=== PATIENT | male | born 1990 | race Caucasian/White ===

== ENCOUNTER → 2019-05-19 13:25 | Outpatient (CLI) | payer OTHER, SELFPAY ==
[2019-05-19 13:42] LABS: Add Manual Diff / Slide Review NO; Basophils Absolute Auto 100 /uL (0-100); Basophils Percent Auto 1.1 % (0-2); Eosinophils Absolute Auto 0 /uL (0-450); Eosinophils Percent Auto 0.7 % (2-4); Hematocrit 42.4 % (41-53); Hemoglobin 14.5 g/dL (13.5-17.5); Lymphocytes Absolute Auto 1400 /uL (1100-4500); Lymphocytes Percent Auto 27.5 % (25-40); Mean Corpuscular HGB Conc 34.1 % (30-36); Mean Corpuscular Hemoglobin 31.4 PG (26-34); Monocytes Absolute Auto 400 /uL (0-900); Monocytes Percent Auto 8.6 % (3-14); Neutrophils Absolute Auto 3100 /uL (1500-7000); Neutrophils Percent Auto 62.1 % (50-75); Platelet Count 272 X10^3/uL (150-400); Red Blood Cell Count 4.61 X10^6/uL (4.5-5.9); Red Cell Distribution Width 13.8 % (11.6-14.8)
[2019-05-19 14:31] LABS: Alanine Aminotransferase 31 IU/L (21-72); Albumin 4.5 g/dL (3.5-5.0); Albumin Globulin Ratio 1.5 (1.0-2.8); Alkaline Phosphatase 100 U/L (38-126); Aspartate Aminotransferase 30 IU/L (17-59); BUN Creatinine Ratio 11.1 (6-22); Bilirubin Total 0.6 mg/dL (0.2-1.3); Blood Urea Nitrogen 10 mg/dL (9-20); Calcium 9.7 mg/dL (8.4-10.2); Carbon Dioxide 27 mmol/L (22-32); Chloride 104 mmol/L (98-107); Estimated Glomerular Filt Rate > 60.0 mL/min (>60); Glucose 93 mg/dL (70-100); HEMOLYSIS < 15 (0-50); Potassium 4.1 mmol/L (3.4-5.1); Sodium 141 mmol/L (137-145); Total Protein 7.5 g/dL (6.3-8.2)
[2019-05-19 15:02] LABS: TSH w/ Reflex to FT4 1.24 uIU/mL (0.47-4.68)
== END ==
PROVIDERS: PCP Family Medicine; Visit Provider Physician Assistant
DX: R53.83 Other fatigue (principal)
CPT/HCPCS: 36415; 80053; 84443; 85025

== ENCOUNTER 2019-08-01 18:05 | Emergency (ER) | payer OTHER, SELFPAY ==
[2019-08-01 18:17] VITALS: BP 131/81; PULSE 71; RESP 16; TEMP 36.7; O2SAT 100; BMI 24.1
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
[2019-08-01 19:44] VITALS: BP 118/70; PULSE 69; RESP 16; O2SAT 99
== END 2019-08-01 19:44 | disposition home or self-care (01) ==
PROVIDERS: Emergency Provider Nurse Practitioner Family; PCP Family Medicine
DX: S09.90XA Unspecified injury of head, initial encounter (principal); M25.562 Pain in left knee; V28.4XXA Motorcycle driver injured in noncollision transport accident in traffic accident, initial encounter
CPT/HCPCS: 70450; 99282; 99284

== ENCOUNTER → 2019-10-06 16:42 | Outpatient (CLI) | payer OTHER, SELFPAY ==
[2019-10-06 19:24] LABS: HIV 1 & 2 Ab/Ag 4th Gen Combo NEGATIVE (NEGATIVE)
== END ==
PROVIDERS: PCP Family Medicine; Visit Provider Physician Assistant
DX: Z11.3 Encounter for screening for infections with a predominantly sexual mode of transmission (principal)
CPT/HCPCS: 36415; 87389

== ENCOUNTER 2019-12-09 01:41 | Emergency (ER) | payer OTHER, SELFPAY ==
[2019-12-09 02:25] VITALS: BP 114/73; PULSE 70; RESP 18; TEMP 36.4; O2SAT 95
--- NOTE | 2019-12-09 02:26 | DI.RAD.S_ITS ---
PROCEDURE: XR CHEST 2V INDICATIONS: SHORTNESS OF BREATH, cough TECHNIQUE: 2 views of the chest were acquired. COMPARISON: None. FINDINGS: Surgical changes and devices: None. Lungs and pleura: Lungs are clear. No pleural effusions or pneumothorax. Mediastinum: Mediastinal contours are normal. Heart size is normal. Bones and chest wall: No suspicious bony abnormalities. Soft tissues appear unremarkable. IMPRESSION: No acute cardiopulmonary findings. Dictated by: Karlee Albert M.D. on 12/09/2019 at 7:52 Approved by: Karlee Albert M.D. on 12/09/2019 at 7:52
[2019-12-09 03:01] VITALS: BP 114/73; PULSE 73; RESP 16; TEMP 36.8; O2SAT 100
[2019-12-09 03:37] LABS: Add Manual Diff / Slide Review NO; Basophils Absolute Auto 100 /uL (0-100); Basophils Percent Auto 1.1 % (0-2); Eosinophils Absolute Auto 100 /uL (0-450); Hemoglobin 15.1 g/dL (13.5-17.5); Lymphocytes Absolute Auto 2400 /uL (1100-4500); Lymphocytes Percent Auto 36.8 % (25-40); Mean Corpuscular HGB Conc 35.1 % (30-36); Mean Corpuscular Hemoglobin 31.8 PG (26-34); Mean Corpuscular Volume 90.7 fL (80-100); Monocytes Absolute Auto 600 /uL (0-900); Monocytes Percent Auto 9.5 % (3-14); Neutrophils Absolute Auto 3400 /uL (1500-7000); Neutrophils Percent Auto 51.6 % (50-75); Platelet Count 286 X10^3/uL (150-400); Red Blood Cell Count 4.74 X10^6/uL (4.5-5.9); Red Cell Distribution Width 13.3 % (11.6-14.8); White Blood Cell Count 6.5 X10^3/uL (4.5-11.0)
[2019-12-09 03:48] LABS: BUN Creatinine Ratio 13.8 (6-22); Blood Urea Nitrogen 11 mg/dL (9-20); Calcium 9.4 mg/dL (8.4-10.2); Carbon Dioxide 26 mmol/L (22-32); Chloride 105 mmol/L (98-107); Creatine Kinase 119 U/L (55-170); Estimated Glomerular Filt Rate > 60.0 mL/min (>60); Glucose 89 mg/dL (70-100); HEMOLYSIS < 15 (0-50); Potassium 3.7 mmol/L (3.4-5.1); Sodium 138 mmol/L (137-145)
[2019-12-09 04:00] LABS: Troponin I < 0.012 ng/mL (0.01-0.034)
[2019-12-09 04:03] LABS: Creatine Kinase MB 1.23 ng/mL (<2.37)
[2019-12-09 04:37] VITALS: BP 112/66; PULSE 88; RESP 24; O2SAT 97
--- NOTE | 2019-12-09 07:42 | ED_ITS ---
HPI - SOB/Dyspnea General Chief Complaint: Shortness of Breath/Dyspnea Stated Complaint: feels like cant get deep enough breath Time Seen by Provider: 12/09/19 01:47 Source: patient Mode of arrival: Ambulatory Limitations: no limitations History of Present Illness HPI Narrative: 21-year-old male smoker without significant medical history presents with a chief complaint shortness of breath, cough, sometimes productive and generally feeling unwell for upwards of a week. He denies fever but has had some chills. He denies any significant runny nose, sore throat. He has had no nausea, vomiting or diarrhea. He denies any international travel or exposure to persons under suspicion for COVID-19. MD Complaint: shortness of breath, cough and pain with inspiration Onset (ago): day(s) Context: recent illness Severity: mild Consistency/Duration: now resolved Relieving factors: rest Exacerbating factors: coughing and inspiration Related Data Previous Rx's Medication Instructions Recorded benzonatate 100 mg capsule 100 mg PO BID PRN #30 cap 11/29/19 doxycycline hyclate 100 mg PO BID #20 tab 12/09/19 Allergies Allergy/AdvReac Type Severity Reaction Status Date / Time No Known Drug Allergies Allergy Verified 11/29/19 15:33 Review of Systems Constitutional Constitutional: Reports chills, Denies fatigue, Denies frequent falls, Denies lethargy and Denies weakness Eyes Eyes: Denies change in vision, Denies eye discharge, Denies irritation and Denies loss of vision ENT Ears, Nose, Mouth, and Throat: Denies change in voice, Denies dizziness, Denies neck pain, Denies sore throat and Denies throat swelling Cardiovascular Cardiovascular: Denies chest pain, Denies irregular heart rhythm, Denies lighth eadedness, Denies palpitations, Reports dyspnea, Denies dyspnea on exertion and Denies orthopnea Respiratory Respiratory: Reports cough, Reports dyspnea, Denies dyspnea on exertion and Denies wheezing Gastrointestinal Gastrointestinal: Denies abdominal pain, Denies change in bowel habits, Denies diarrhea, Denies nausea and Denies vomiting Genitourinary Genitourinary: Denies hematuria, Denies flank pain, Denies urinary incontinence and Denies urinary urgency Musculoskeletal Musculoskeletal: Denies back pain, Denies muscle weakness, Denies neck pain, Denies numbness and Denies tingling Integumentary/Breasts Skin/Breast: Denies pruritus, Denies erythema, Denies rash and Denies wounds Neurologic Neurologic: Denies behavioral changes, Denies confusion, Denies dizziness, Denies frequent falls, Denies loss of vision, Denies numbness, Denies tingling and Denies weakness Psychiatric Psychiatric: Denies anxiety, Denies behavioral changes, Denies confusion, Denies depression, Denies homicidal ideation and Denies suicidal ideation Endocrine Endocrine: Denies fatigue, Denies flushing and Denies palpitations Hematologic/Lymphatic Hematologic/Lymphatic: Denies easy bruising Allergic/Immunologic Allergic/Immunologic: Denies urticaria, Denies throat swelling and Denies wheezing Patient History Medical History Nasal congestion (Acute) Sinusitis (Acute) Social History Smoking Status: Current some day smoker Tobacco: How many years used: 10 Smokeless tobacco user: chewing tobacco (trying to quit ) quit status: considering quitting second hand exposure: Yes alcohol intake: former substance use type: former substance user and marijuana (Former ) Smoking Status: Current some day smoker tobacco type: smokeless tobacco Substance Use Type: does not use Exam Narrative Exam Narrative: GENERAL: [29] year old patient appears stated age. Well- nourished, well-developed patient, in mild distress. HEAD: Atraumatic. Normocephalic. EYES: Pupils equal round and reactive. Extraocular motions intact. No scleral icterus. No injection or drainage. ENT: Nose without bleeding, purulent drainage. Throat without erythema, tonsillar hypertrophy or exudate. Airway patent. NECK: Trachea midline. Non tender CARDIOVASCULAR: Regular rate and rhythm without murmurs, gallops, or rubs. RESPIRATORY: Clear to auscultation. Breath sounds equal bilaterally. No wheezes, rales, or rhonchi. GASTROINTESTINAL: Abdomen soft, non-tender, nondistended. EXTREMITIES: No edema or joint tenderness. BACK: Nontender without deformity or crepitance. No flank tenderness. NEURO: AOx3. SKIN: No rash or erythema of visible areas Initial Vital Signs Initial Vital Signs: Vital Signs Temperature 97.6 F 12/09/19 02:25 Pulse Rate 70 12/09/19 02:25 Respiratory Rate 18 12/09/19 02:25 Blood Pressure 114/73 12/09/19 02:25 Pulse Oximetry 95 12/09/19 02:25 Course Orders Ordered: ED Orders 12/09/19 02:26 Chest [XR chest 2V] Stat 12/09/19 03:22 EKG-12 Lead Stat 12/09/19 03:24 Basic Metabolic Panel Stat Complete Blood Count AUTO DIFF Stat Troponin & CK Cardiac Panel Stat Vital Signs Vital signs: Vital Signs - 8 hr 12/09/19 02:25 12/09/19 03:01 12/09/19 04:37 Temperature 97.6 F 98.2 F Pulse Rate 70 73 88 Respiratory Rate 18 16 24 Blood Pressure 114/73 112/66 Blood Pressure [Left Arm] 114/73 Pulse Oximetry 95 100 97 MDM - SOB/Dyspnea Lab Data Result diagrams: 12/09/19 03:24 12/09/19 03:24 Labs: Lab Results 12/09/19 12/09/19 Range/Units 03:24 03:24 WBC 6.5 (4.5-11.0) X10^3/uL RBC 4.74 (4.5-5.9) X10^6/uL Hgb 15.1 (13.5-17.5) g/dL Hct 43.0 (41-53) % MCV 90.7 (80-100) fL MCH 31.8 (26-34) PG MCHC 35.1 (30-36) % RDW 13.3 (11.6-14.8) % Plt Count 286 (150-400) X10^3/uL Neut % (Auto) 51.6 (50-75) % Lymph % (Auto) 36.8 (25-40) % Atlantic % (Auto) 9.5 (3-14) % Eos % (Auto) 1.0 L (2-4) % Baso % (Auto) 1.1 (0-2) % Neut # (Auto) 3400 (3013-6825) /uL Lymph # (Auto) 2400 (0723-1398) /uL [place] # (Auto) 600 (0-900) /uL Eos # (Auto) 100 (0-450) /uL Baso # (Auto) 100 (0-100) /uL Sodium 138 (137-145) mmol/L Potassium 3.7 (3.4-5.1) mmol/L Chloride 105 (98-107) mmol/L Carbon Dioxide 26 (22-32) mmol/L BUN 11 (9-20) mg/dL Creatinine 0.80 (0.66-1.25) mg/dL Estimated GFR > 60.0 (>60) mL/min BUN/Creatinine Ratio 13.8 (6-22) Glucose 89 (70-100) mg/dL Calcium 9.4 (8.4-10.2) mg/dL Total Creatine Kinase 119 (55-170) U/L CK-MB (CK-2) 1.23 (<2.37) ng/mL CK-MB (CK-2) Rel Index 1.0 L (1.5-5.0) % Troponin I < 0.012 (0.01-0.034) ng/mL Imaging Data Chest x-ray: Radiologist's Impression: Patient: Yakov Banks [facility] [place]#: [id number] : 1990Acct:[id number] Age/Sex: 29 / MDate of Service: 12/09/19 Loc: ED Accession Number: [id number] Procedure: XR chest 2V Ordering Provider: Ar Perez D.O. PROCEDURE: XR CHEST 2V INDICATIONS: SHORTNESS OF BREATH, cough TECHNIQUE: 2 views of the chest were acquired. COMPARISON: None. FINDINGS: Surgical changes and devices: None. Lungs and pleura: Lungs are clear. No pleural effusions or pneumothorax. Mediastinum: Mediastinal contours are normal. Heart size is normal. Bones and chest wall: No suspicious bony abnormalities. Soft tissues appear unremarkable. IMPRESSION: No acute cardiopulmonary findings. Dictated by: Karlee Albert M.D. on 12/09/2019 at 7:52 Approved by: Karlee Albert M.D. on 12/09/2019 at 7:52 [facility] Narrative Medical decision making narrative: Multiple etiologies for patient's symptoms considered including: [Cardiac ischemia versus pulmonary embolism versus pneumonia versus pleuritis versus other] Patient's symptoms improved or duration of stay with above-stated therapies. Findings and discharge diagnosis discussed with patient/family followed by verbalization of understanding Return precautions discussed with patient/family whom verbalize understanding. Discharge Plan Departure Patient Disposition: Home Clinical Impression: Acute dyspnea, Atypical pneumonia Discharge Date/Time: 03/07/20 04:39 Instructions: DI for Atypical Pneumonia Activity Restrictions/Additional Instructions: *You have been diagnosed with [ atypical pneumonia ] *What to do: *Take medications as directed *Follow up with your primary care provider in 2-3 days, call for an appointment. Let them know you were seen in the Emergency Department and that we ask that you be seen in follow up *Return to ER if you should have any new, worsening or concerning symptoms Prescriptions: New doxycycline hyclate 100 mg tablet 100 mg PO BID Qty: 20 RF: 0 No Action benzonatate [Tessalon Perles] 100 mg capsule 100 mg PO BID PRN (Reason: cough) Qty: 30 RF: 1 Referrals: Al Johns, [Primary Care Provider] -
== END 2019-12-09 04:39 | disposition home or self-care (01) ==
PROVIDERS: Emergency Provider Emergency Medicine; PCP Family Medicine
DX: R06.00 Dyspnea, unspecified (principal); J18.9 Pneumonia, unspecified organism; R07.9 Chest pain, unspecified
CPT/HCPCS: 36415; 71046; 80048; 82550; 82553; 84484; 85025; 93005; 93010; 99283; 99284

== ENCOUNTER → 2020-01-11 12:00 | Outpatient (CLI) | payer OTHER, SELFPAY ==
[2020-01-11 13:19] LABS: Influenza A - CEPHEID Flu A NEGATIVE (NEGATIVE); Influenza B - CEPHEID Flu B NEGATIVE (NEGATIVE)
[2020-01-13 02:06] LABS: COVID19 Sendout Not Detected (Not Detected)
== END ==
PROVIDERS: PCP Family Medicine; Visit Provider Registered Nurse
DX: Z20.828 Contact with and (suspected) exposure to other viral communicable diseases (principal); R05 Cough; R06.02 Shortness of breath; R68.89 Other general symptoms and signs; Z87.01 Personal history of pneumonia (recurrent)
CPT/HCPCS: 87502; 87635

== ENCOUNTER → 2020-05-08 15:56 | Outpatient (CLI) | payer BC, SELFPAY ==
[2020-05-08 16:37] LABS: Add Manual Diff / Slide Review NO; Basophils Absolute Auto 0 /uL (0-100); Basophils Percent Auto 0.5 % (0-2); Eosinophils Absolute Auto 100 /uL (0-450); Eosinophils Percent Auto 1.1 % (2-4); Hematocrit 41.2 % (41-53); Hemoglobin 14.2 g/dL (13.5-17.5); Lymphocytes Absolute Auto 1800 /uL (1100-4500); Lymphocytes Percent Auto 34.4 % (25-40); Mean Corpuscular HGB Conc 34.5 % (30-36); Mean Corpuscular Hemoglobin 31.4 PG (26-34); Monocytes Absolute Auto 500 /uL (0-900); Neutrophils Absolute Auto 2800 /uL (1500-7000); Platelet Count 271 X10^3/uL (150-400); Red Blood Cell Count 4.52 X10^6/uL (4.5-5.9); Red Cell Distribution Width 12.6 % (11.6-14.8); White Blood Cell Count 5.2 X10^3/uL (4.5-11.0)
[2020-05-08 16:47] LABS: Hemoglobin A1C% w Est Avg Glu 5.2 % (4.0-6.0)
== END ==
PROVIDERS: PCP Family Medicine; Referring Provider Family Medicine; Visit Provider Family Medicine
DX: G47.9 Sleep disorder, unspecified (principal)
CPT/HCPCS: 36415; 83036; 84443; 85025

== ENCOUNTER → 2022-09-25 15:17 | Outpatient (CLI) | payer BC, SELFPAY ==
--- NOTE | 2022-09-25 15:19 | DI.RAD.S_ITS ---
PROCEDURE: XR KNEE LT 3V INDICATIONS: Left Knee pain TECHNIQUE: 3 views of the knee were acquired. COMPARISON: None. FINDINGS: Bones: No fractures or dislocations. No suspicious bony lesions. Soft tissues: No joint effusion. No suspicious soft tissue calcifications. IMPRESSION: No evidence acute bony abnormality of the left knee. If clinical suspicion and/or symptoms persist, further assessment with repeat plain films, or advanced imaging (e.g., CT, MRI, or bone scan) may be helpful for further assessment. Dictated by: Jose Morris M.D. on 09/25/2022 at 16:16 Approved by: Jose Morris M.D. on 09/25/2022 at 16:16
== END ==
PROVIDERS: PCP Family Medicine; Referring Provider Family Medicine; Visit Provider Family Medicine
DX: M25.562 Pain in left knee (principal)
CPT/HCPCS: 73562

== ENCOUNTER 2023-02-27 14:36 | Emergency (ER) | payer BC, SELFPAY ==
[2023-02-27 14:39] VITALS: BP 139/81; PULSE 85; RESP 18; TEMP 36.6; O2SAT 97; BMI 24.1
[2023-02-27 15:55] VITALS: PULSE 74; RESP 18; O2SAT 99
--- NOTE | 2023-02-28 07:53 | ED_ITS ---
HPI - Psych General Chief Complaint: Psychiatric Symptoms Stated Complaint: mental troubles/troubled Time Seen by Provider: 02/27/23 15:06 Source: patient Mode of arrival: Ambulatory History of Present Illness HPI Narrative: 32-year-old male former smoker with history of depression presents for evaluation of depression. He does not have suicidal or homicidal ideations and states that he is able to care for himself and perform activities of daily living. He has been having increasing difficulties at home and is in a marriage that is ?on the rocks?. There was some conversation with his and he uttered something similar to ?I would not care if I was no longer here?. He very firmly states that he has no suicidal ideation or plan and would never take steps to hurt himself but is here because his recommended he come for e valuation. He states some of his triggers are the feeling of lack of respect and understanding at home and a marriage that is dissolving. He states that his is preventing him from being involved with his step children which is quite painful. They do have 1 child together whom he has a good relationship with. He states another significant trigger is adult with emotions relating to the untimely of his closest friend many years ago. He does have a therapist that he sees relatively routinely but does not take any medications. He does not wish to pursue hospitalization Related Data Allergies Allergy/AdvReac Type Severity Reaction Status Date / Time No Known Drug Allergies Allergy Verified 09/25/22 14:24 Review of Systems Review of Systems Narrative: GENERAL: Denies chills, fatigue, malaise, fever, sweats. HEENT: Denies sinus pain, ear pain, sore throat, difficulty swallowing, dizziness. RESPIRATORY: Denies dyspnea, cough, wheezing, hemoptysis, sputum. CARDIOVASCULAR: Denies chest pain, palpitations, orthopnea, edema, GASTROINTESTINAL: Denies nausea, vomiting, abdominal pain, diarrhea, constipation, melena. : Denies dysuria, frequency, incontinence, hematuria, urinary retention. MUSCULOSKELETAL: denies weakness, joint pain, or bony pain SKIN: Denies rash, skin lesions, or other NEUROLOGIC: Denies weakness, headache, numbness, change in speech, confusion, seizures, incoordination. PSYCHIATRIC: See HPI 12 point review of systems is negative except for those stated above Patient History Medical History Disordered sleep Family history of colon cancer Left knee pain Nasal congestion Sinusitis Situational anxiety Well adult exam Social History Smoking Status: Former smoker Tobacco: How many years used: 10 Smokeless tobacco user: chewing tobacco (trying to quit ) quit status: considering quitting second hand exposure: Yes alcohol intake: former substance use type: former substance user and marijuana (Former ) Smoking Status: Former smoker tobacco type: smokeless tobacco Substance Use Type: does not use Exam Narrative Exam Narrative: GENERAL: [32] year old patient appears stated age. Well-developed patient, in mild distress. He makes good eye contact and has appropriate insight HEAD: Atraumatic. Normocephalic. EYES: Pupils equal round and reactive. Extraocular motions intact. No scleral icterus. No injection or drainage. ENT: Nose without bleeding, purulent drainage. Throat without erythema, tonsillar hypertrophy or exudate. Airway patent. NECK: Trachea midline. Non tender CARDIOVASCULAR: Regular rate and rhythm without murmurs, gallops, or rubs. RESPIRATORY: Clear to auscultation. Breath sounds equal bilaterally. No wheezes, rales, or rhonchi. GASTROINTESTINAL: Abdomen soft, non-tender, nondistended. EXTREMITIES: No edema or joint tenderness. BACK: Nontender without deformity or crepitance. No flank tenderness. NEURO: AOx3. SKIN: No rash or erythema of visible areas Initial Vital Signs Initial Vital Signs: Vital Signs Temperature 97.9 F 02/27/23 14:39 Pulse Rate 85 02/27/23 14:39 Respiratory Rate 18 02/27/23 14:39 Blood Pressure 139/81 02/27/23 14:39 Pulse Oximetry 97 02/27/23 14:39 Oxygen Delivery Method Room Air 02/27/23 14:39 MDM - Psych MDM Narrative Medical decision making narrative: [32] year old patient presents with depression Multiple etiologies for patient's symptoms considered including, but not limited to: [Severe depression versus suicidal ideation versus other] Prior Charts reviewed in our EMR Primary Historian: patient Patient admits that he is depressed but very clearly states he has no suicidal or homicidal ideation and get perform ADLs. He has good capacity, good insight and is motivated to improve. We discussed the possibility of pursuing hospitalization and he states he would prefer to use his resources at home 1st. We are able to discuss a safety plan which she assures he can adhere to.. Findings and discharge diagnosis discussed with patient/family followed by verbalization of understanding Return precautions discussed with patient/family whom verbalize understanding of diagnosis and plan Discharge Plan Departure Patient Disposition: Home Clinical Impression: Depression Instructions: Depression Activity Restrictions/Additional Instructions: *If you feel that you are entering into mental health crisis you have multiple options 1. Return to the ER immediately 2. Call the Crisis Line at [phone] 3. Send an anonymous text by sending the word Edilia to [phone] 4. Navigate your web browser to [employer] to engage in anonymous chat with a mental health worker Referrals: Al Johns, [Primary Care Provider] - Stand Alone Forms: Patient Portal/API
== END 2023-02-27 15:56 | disposition home or self-care (01) ==
PROVIDERS: Emergency Provider Emergency Medicine; PCP Family Medicine
DX: F32.A Depression, unspecified (principal)
CPT/HCPCS: 99283